=== PATIENT | female | born 2000 | race Caucasian/White ===

== ENCOUNTER 2021-10-19 09:10 | Emergency (ER) | payer OTHER ==
[~2021-10-19] VITALS: Ht 167.6 cm; Wt 78.5 kg
--- NOTE | 2021-10-19 09:46 | PHYS DOC ---
Past History Past Surgical History: No Surgical History (KYLE ZHONG APRN) Alcohol Use: Occasionally (KYLE ZHONG APRN) General Adult EDM: Chief Complaint: COUGH HPI: HPI: Patient is a 20-year-old female who presents to the emergency department. Patient reports that her is Covid positive and for the last 2 days she has had a nonproductive cough with nasal congestion. She reports that today she lost her taste and smell and would like to be tested for Covid. Patient denies any shortness of breath, fever, nausea, vomiting, chest pain. (KYLE ZHONG APRN) Review of Systems: Review of Systems: Constitutional: See HPI HENT: See HPI Respiratory: See HPI Cardiovascular: See HPI GI: See HPI (KYLE ZHONG APRN) Allergies: Allergies: Allergies Coded Allergies Type Severity Reaction Last Updated Verified No Known Drug Allergies 10/19/21 No (KYLE ZHONG APRN) Physical Exam: PE: Constitutional: Well developed, well nourished, no acute distress, non-toxic appearance. [] HENT: Normocephalic, atraumatic, bilateral external ears normal, oropharynx moist, no oral exudates, nose normal. [] Eyes: PERRL, EOMI, conjunctiva normal, no discharge. [] Neck: Normal range of motion, no tenderness, supple, no stridor. [] Cardiovascular:Heart rate regular rhythm, no murmur [] Lungs & Thorax: Bilateral breath sounds clear to auscultation [] Abdomen: Bowel sounds normal, soft, no tenderness, no masses, no pulsatile masses. [] Skin: Warm, dry, no erythema, no rash. [] Back: Normal range of motion Extremities: No tenderness, no cyanosis, no clubbing, ROM intact, no edema. [] Neurologic: Alert and oriented X 3, normal motor function, normal sensory function, no focal deficits noted. [] Psychologic: Affect normal, judgement normal, mood normal. [] (KYLE ZHONG APRN) Current Patient Data: Vital Signs: Vital Signs Date Time Temp Pulse Resp B/P (MAP) Pulse Ox O2 Delivery O2 Flow Rate FiO2 10/19/21 09:10 98.1 78 18 140/79 (99) 97 Room Air (KYLE ZHONG APRN) EKG: EKG: [] (KYLE ZHONG APRN) Radiology/Procedures: Radiology/Procedures: [] (KYLE ZHONG APRN) Heart Score: C/O Chest Pain: No Risk Factors: Risk Factors: DM, Current or recent (<one month) smoker, HTN, HLP, family history of CAD, obesity. Risk Scores: Score 0 - 3: 2.5% MACE over next 6 weeks - Discharge Home Score 4 - 6: 20.3% MACE over next 6 weeks - Admit for Clinical Observation Score 7 - 10: 72.7% MACE over next 6 weeks - Early Invasive Strategies (KYLE ZHONG APRN) Course & Med Decision Making: Course & Med Decision Making Pertinent Labs and Imaging studies reviewed. (See chart for details) [] Patient presents to the emergency department requesting a Covid test. She reports that she has had nasal congestion, nonproductive cough and loss of taste and smell. Her tested positive for COVID-19 yesterday. Patient's vital signs are stable and she is in no acute distress. She is not reporting any shortness of breath or chest pain and she is not hypoxic. Patient be tested for COVID-19 and will be notified of her results when they become available in approximately 1 to 2 days. She is advised to self isolate pending these results. She was also educated on symptomatic treatment. I discussed with patient all findings and diagnostic testing as well as the need to follow-up with PCP for further evaluation and treatment or return to the ER if any new or worsening symptoms. Strict return precautions were also discussed at length. Patient voiced understanding and agreement with the plan. Patient is hemodynamically stable at the time of disposition. (KYLE ZHONG APRN) Dragon Disclaimer: Dragon Disclaimer: This electronic medical record was generated, in whole or in part, using a voice recognition dictation system. (KYLE ZHONG APRN) Attending Co-Sign The patient was seen and interviewed as well as examined at the bedside. The chart was reviewed. The case was discussed. Agree with the plan of care. (RUSLAN MEDINA DO) Departure Departure: Impression: Primary Impression: Person under investigation for COVID-19 Disposition: HOME / SELF CARE / HOMELESS Condition: GOOD Referrals: ANDIE ALANIS MD (PCP) Patient Instructions: Cough, Adult Additional Instructions: You were seen in the emergency department today for a cough, nasal congestion and loss of taste and smell. You are tested in the ER for COVID-19 you will be notified of those results when they become available in approximately 1 to 2 days. Please self isolate until you receive these results. Please increase your fluids and rest. For any pain or fevers please take Tylenol and/or ibuprofen. For your cough I would advise you to take Delsym [id number]. I would advise you to purchase a pulse oximeter and monitor your oxygen s aturations at home. Please return to the emergency department if your oxygen saturation drops below 90%. Please follow-up with your primary care provider regarding your ER visit. Please return to the emergency department if you develop a low oxygen saturation, shortness of breath, high fevers refractory to treatment, intractable nausea or vomiting, chest pain. KYLE ZHONG APRN Oct 19, 2021 09:46 RUSLAN MEDINA DO Oct 20, 2021 06:35
[2021-10-19 10:20] VITALS: BP 148/98
== END 2021-10-19 10:20 | disposition home or self-care (01) ==
LOC: ER 09:10
DX: U07.1 COVID-19 (principal)
CPT/HCPCS: 99283; C9803; U0003